=== PATIENT | male | born 1945 | race Caucasian/White ===

== ENCOUNTER 2017-08-26 18:46 | Inpatient (IN) ==
[2017-08-26] MEDS ORDERED: ASPIRIN 325 MG TABLET PO STA (19:08)
[2017-08-26] MEDS ORDERED: ASPIRIN 325 MG TABLET ONE (19:38)
[2017-08-26 20:05] LABS: Basophils % 0.3 % (0.0-0.8); Eosinophils # 0.1 10*3/uL (0.0-0.87); Eosinophils % 0.8 % (0.00-10.9); Hemoglobin 12.6 GM/DL (14.0-18.0); Immature Granulocytes % 0.9 %; Lymphocytes # 0.8 10*3/uL (1.4-4.0); Lymphocytes % 6.8 % (21.2-54.2); Mean Corpuscular HGB Conc 33.2 GM/DL (32-36); Mean Corpuscular Hemoglobin 31 PG (27-34); Mean Corpuscular Volume 93.1 FL (87-102); Mean Platelet Volume 10.1 FL (9.6-12.0); Monocytes # 0.6 10*3/uL (0.11-0.8); Monocytes % 5.6 % (1.7-12.7); Neutrophils # 9.7 10*3/uL (1.4-7.4); Neutrophils % 85.6 % (38.7-73.9); Platelet Count 123 T/CUMM (130-400); Red Blood Count 4.08 MC/CUMM (3.8-5.5); Red Cell Distribution Width 13.4 % (9.3-17.3); White Blood Count 11.3 T/CUMM (4-12)
[2017-08-26 20:28] LABS: Albumin 3.4 G/DL (3.4-5.0); Bilirubin,Total 0.7 MG/DL (0.2-1.0); Calcium 8.5 MG/DL (8.5-10.1); Osmolality,Calculated 283.5 MOS/KG (273-304); Potassium 3.8 MMOL/L (3.5-5.1); Total Protein 7.7 G/DL (6.4-8.3)
[2017-08-26 20:37] LABS: INR 1.1; PT Patient Result 11.4 SECS
[2017-08-26] MEDS ORDERED: HEPARIN 1,000 UNIT/1 ML VIAL IV STA (21:37)
[2017-08-26] MEDS ORDERED: HEPARIN DRIP 25,000 UNITS/500 ML PREMIX IV SCH (22:00)
[2017-08-26] MEDS ORDERED: HEPARIN DRIP 25,000 UNITS/500 ML PREMIX IV ONE (22:08)
[2017-08-26] MEDS ORDERED: HEPARIN 1,000 UNIT/1 ML VIAL ONE (22:08)
[2017-08-26] MEDS ORDERED: HEPARIN DRIP 25,000 UNITS/500 ML PREMIX IV STA (22:11)
[2017-08-26] MEDS ORDERED: HEPARIN 5,000 UNIT/1 ML VIAL ONE (22:19)
[2017-08-26] MEDS ORDERED: ALBUTEROL 2.5 MG/3 ML NEB RESP TX PRN (23:32)
[2017-08-27 07:38] LABS: INR 1.1; PT Patient Result 11.4 SECS
[2017-08-27 09:15] LABS: Basophils % 0.3 % (0.0-0.8); Eosinophils # 0.2 10*3/uL (0.0-0.87); Eosinophils % 2.5 % (0.00-10.9); Hematocrit 35.4 VOL% (42.0-52.0); Immature Granulocytes % 0.3 %; Immature Granulocytes Absolute 0.02 #; Lymphocytes # 1.1 10*3/uL (1.4-4.0); Mean Corpuscular HGB Conc 33.9 GM/DL (32-36); Mean Corpuscular Hemoglobin 31 PG (27-34); Mean Corpuscular Volume 92.7 FL (87-102); Mean Platelet Volume 10.4 FL (9.6-12.0); Monocytes # 0.7 10*3/uL (0.11-0.8); Monocytes % 10.5 % (1.7-12.7); Neutrophils # 4.5 10*3/uL (1.4-7.4); Neutrophils % 69.4 % (38.7-73.9); Platelet Count 153 T/CUMM (130-400); Red Blood Count 3.82 MC/CUMM (3.8-5.5); Red Cell Distribution Width 13.6 % (9.3-17.3); White Blood Count 6.5 T/CUMM (4-12)
[2017-08-27 09:47] LABS: Albumin 3.2 G/DL (3.4-5.0); Bilirubin,Total 0.8 MG/DL (0.2-1.0); Calcium 8.7 MG/DL (8.5-10.1); Osmolality,Calculated 278.5 MOS/KG (273-304); Total Protein 7.2 G/DL (6.4-8.3)
[2017-08-27] MEDS ORDERED: MEPERIDINE 25 MG/1 ML VIAL ONE (10:27)
[2017-08-27] MEDS ORDERED: LIDOCAINE 1% 20 ML VIAL ONE (10:27)
[2017-08-27] MEDS ORDERED: MIDAZOLAM 2 MG/2 ML VIAL ONE (10:27)
[2017-08-27] MEDS ORDERED: ALTEPLASE 6 MG in SODIUM CHLORIDE 0.9% 120 ML IV SCH (11:00)
[2017-08-27] MEDS ORDERED: ALTEPLASE 2 MG VIAL ONE (11:11)
[2017-08-27] MEDS ORDERED: MORPHINE 2 MG/1 ML SYRINGE IV PRN (11:29)
[2017-08-27] MEDS ORDERED: ONDANSETRON 4 MG/2 ML VIAL IV PRN (11:29)
[2017-08-27] MEDS ORDERED: oxyCODONE/ACETAMINOPHEN 5-325 MG TABLET PO PRN (11:29)
[2017-08-27] MEDS ORDERED: SODIUM CHLORIDE 0.9% 1,000 ML IV SCH ×3 (11:30)
[2017-08-27] MEDS ORDERED: HEPARIN DRIP 25,000 UNITS/500 ML PREMIX IV SCH ×2 (11:30)
[2017-08-27 12:43] LABS: INR 1.1; PT Patient Result 11.4 SECS
[2017-08-27 12:50] LABS: Partial Thromboplastin Time 41.9 SECS (0-40)
[2017-08-27 16:44] LABS: INR 1.1; PT Patient Result 11.5 SECS
[2017-08-27] MEDS ORDERED: ENOXAPARIN 60 MG/0.6 ML SYRINGE SUBCUT ONE (20:00)
[2017-08-27] MEDS: TERAZOSIN 5 MG CAPSULE PO SCH (20:45)
[2017-08-27] MEDS: PRAVASTATIN 20 MG TABLET PO SCH (20:45)
[2017-08-27] MEDS: WARFARIN 5 MG TABLET PO SCH (20:45)
[2017-08-28 00:13] LABS: Partial Thromboplastin Time 30.6 SECS (0-40)
[2017-08-28 05:29] LABS: Basophils % 0.5 % (0.0-0.8); Eosinophils # 0.1 10*3/uL (0.0-0.87); Eosinophils % 1.7 % (0.00-10.9); Hemoglobin 11.2 GM/DL (14.0-18.0); Immature Granulocytes % 0.3 %; Immature Granulocytes Absolute 0.02 #; Lymphocytes # 0.8 10*3/uL (1.4-4.0); Lymphocytes % 12.3 % (21.2-54.2); Mean Corpuscular HGB Conc 33.9 GM/DL (32-36); Mean Corpuscular Hemoglobin 31 PG (27-34); Mean Corpuscular Volume 91.9 FL (87-102); Mean Platelet Volume 10.2 FL (9.6-12.0); Monocytes # 0.7 10*3/uL (0.11-0.8); Monocytes % 9.8 % (1.7-12.7); Neutrophils % 75.4 % (38.7-73.9); Platelet Count 157 T/CUMM (130-400); Red Blood Count 3.59 MC/CUMM (3.8-5.5); Red Cell Distribution Width 13.6 % (9.3-17.3); White Blood Count 6.6 T/CUMM (4-12)
[2017-08-28 05:57] LABS: INR 1.1; PT Patient Result 11.2 SECS
[2017-08-28 05:59] LABS: Calcium 8.2 MG/DL (8.5-10.1); Magnesium 2.1 MG/DL (1.8-2.4); Osmolality,Calculated 282.4 MOS/KG (273-304)
[2017-08-28] MEDS: LEVOTHYROXINE 125 MCG TABLET PO SCH (09:09)
[2017-08-28] MEDS: LOSARTAN 25 MG TABLET PO SCH (09:09)
[2017-08-28] MEDS: ENOXAPARIN 80 MG/0.8 ML SYRINGE SUBCUT SCH ×2 (09:10→22:06)
[2017-08-28] MEDS: FINASTERIDE 5 MG TABLET PO SCH (09:10)
[2017-08-28] MEDS: CYANOCOBALAMIN 500 MCG TABLET PO SCH (09:10)
[2017-08-28] MEDS: hydroCHLOROthiazide 12.5 MG CAPSULE PO SCH (09:10)
[2017-08-28] MEDS: amLODIPine 2.5 MG TABLET PO SCH (09:10)
[2017-08-28 12:21] LABS: Partial Thromboplastin Time 25.7 SECS (0-40)
[2017-08-28 15:26] LABS: Apearance,Urine CLOUDY (Clear); Bilirubin,Urine Negative (Negative); Blood, Urine Negative (Negative); Glucose,Urine (UA) Negative (Negative); Ketones,Urine Negative (Negative); Nitrite,Urine Negative (Negative); Protein,Urine Negative; RBC,Urine 7 /HPF (0-4); Squamous Epithelial Cell,Urine Occasional /HPF (0-10); Urine Color Yellow (Yellow); Urine Urobilinogen < 2.0 EU/DL (0.2-1.0); WBC,Urine 346 /HPF (0-6)
[2017-08-28] MEDS: WARFARIN 5 MG TABLET PO SCH (18:03)
[2017-08-28] MEDS: TERAZOSIN 5 MG CAPSULE PO SCH (22:06)
[2017-08-28] MEDS: PRAVASTATIN 20 MG TABLET PO SCH (22:06)
[2017-08-29 05:33] LABS: Basophils % 0.6 % (0.0-0.8); Eosinophils # 0.1 10*3/uL (0.0-0.87); Eosinophils % 1.9 % (0.00-10.9); Hematocrit 30.5 VOL% (42.0-52.0); Hemoglobin 10.2 GM/DL (14.0-18.0); Immature Granulocytes % 0.4 %; Immature Granulocytes Absolute 0.03 #; Lymphocytes # 0.9 10*3/uL (1.4-4.0); Lymphocytes % 12.1 % (21.2-54.2); Mean Corpuscular HGB Conc 33.4 GM/DL (32-36); Mean Corpuscular Hemoglobin 31 PG (27-34); Mean Corpuscular Volume 92.4 FL (87-102); Mean Platelet Volume 10.3 FL (9.6-12.0); Monocytes # 0.8 10*3/uL (0.11-0.8); Monocytes % 10.7 % (1.7-12.7); Neutrophils # 5.4 10*3/uL (1.4-7.4); Neutrophils % 74.3 % (38.7-73.9); Platelet Count 175 T/CUMM (130-400); Red Cell Distribution Width 13.4 % (9.3-17.3); White Blood Count 7.2 T/CUMM (4-12)
[2017-08-29 05:44] LABS: INR 1.1; PT Patient Result 11.6 SECS
[2017-08-29 06:06] LABS: Calcium 7.9 MG/DL (8.5-10.1); Magnesium 2.2 MG/DL (1.8-2.4); Osmolality,Calculated 286.3 MOS/KG (273-304); Potassium 3.6 MMOL/L (3.5-5.1)
[2017-08-29] MEDS: LEVOTHYROXINE 125 MCG TABLET PO SCH (06:54)
[2017-08-29] MEDS: amLODIPine 2.5 MG TABLET PO SCH (08:45)
[2017-08-29] MEDS: hydroCHLOROthiazide 12.5 MG CAPSULE PO SCH (08:47)
[2017-08-29] MEDS: FINASTERIDE 5 MG TABLET PO SCH (08:47)
[2017-08-29] MEDS: LOSARTAN 25 MG TABLET PO SCH (08:47)
[2017-08-29] MEDS: CYANOCOBALAMIN 500 MCG TABLET PO SCH (08:47)
[2017-08-29] MEDS: ENOXAPARIN 80 MG/0.8 ML SYRINGE SUBCUT SCH (08:48)
[2017-08-29] MEDS ORDERED: WARFARIN 10 MG TABLET PO ONE (09:10)
[2017-08-29] MEDS ORDERED: WARFARIN 5 MG TABLET ONE (09:43)
[2017-08-29 13:01] VITALS: BP 130/81
== END 2017-08-29 14:37 | disposition home or self-care (01) | DRG 175 ==
LOC: SUATTDRO → N.ED 18:46 → N.SDSINP 23:32 → N.CC 08-27 10:10 → N.CL 08-27 11:00 → N.CC 08-27 11:43
PROVIDERS: ADMIT Internal Medicine Cardiovascular Disease; ATTEND Internal Medicine Cardiovascular Disease